=== PATIENT | female | born 2005 | race Caucasian/White ===

== ENCOUNTER 2023-09-15 20:43 | Emergency (ER) | payer BC ==
[~2023-09-15] VITALS: Ht 167.6 cm; Wt 77.3 kg
[~2023-09-15 20:43] MED LIST: PREDNISONE10 MG PO
[2023-09-15 20:47] VITALS: BP 111/70; TEMP 98.5
[2023-09-15] MEDS ORDERED: CRUTCHES MC (21:15)
[2023-09-15] MEDS ORDERED: Ibuprofen 400 MG TAB PO ONE (21:15)
[2023-09-15] MEDS ORDERED: Acetaminophen 500 MG TAB PO ONE (21:15)
[2023-09-15 21:54] VITALS: PULSE 85
== END 2023-09-15 21:51 | disposition home or self-care (01) ==
LOC: COL.ER 20:43
DX: S93.401A Sprain of unspecified ligament of right ankle, initial encounter (principal); W50.0XXA Accidental hit or strike by another person, initial encounter; X50.1XXA Overexertion from prolonged static or awkward postures, initial encounter; Y93.67 Activity, basketball; Y92.310 Basketball court as the place of occurrence of the external cause